=== PATIENT | female | born 1975 | race Caucasian/White ===

== ENCOUNTER 2017-06-26 17:55 | Emergency (ER) | payer OTHER ==
[~2017-06-26] VITALS: Ht 165.1 cm; Wt 85.0 kg
[~2017-06-26 17:55] MED LIST: IBUP-814 PO; NO HOME MEDS; PENI500T2 PO
[2017-06-26] MEDS ORDERED: CLIN-80 PO (18:16)
[2017-06-26] MEDS ORDERED: IBUP-1984 PO (18:16)
[2017-06-26 18:25] VITALS: BP 168/127
== END 2017-06-26 18:26 | disposition home or self-care (01) ==
LOC: ER 17:55
DX: K08.89 Other specified disorders of teeth and supporting structures (principal)
CPT/HCPCS: 99283